=== PATIENT | male | born 1990 | race Caucasian/White ===

== ENCOUNTER 2019-10-17 14:45 | Emergency (ER) | payer MEDICAID ==
[~2019-10-17] VITALS: Ht 172.7 cm; Wt 85.0 kg
[2019-10-17 14:48] VITALS: BP 127/64
[2019-10-17] MEDS ORDERED: TETANUS, DIPHTHERIA, PERTUSSIS VAC/PF 0.5ML (>7YR OLD) IM ONE (15:15)
== END 2019-10-17 15:45 | disposition home or self-care (01) ==
LOC: ER 14:45
DX: S91.331A Puncture wound without foreign body, right foot, initial encounter (principal); Z91.013 Allergy to seafood; W45.0XXA Nail entering through skin, initial encounter; Y93.89 Activity, other specified; Y92.89 Other specified places as the place of occurrence of the external cause
CPT/HCPCS: 90471; 90715; 99283

== ENCOUNTER 2025-03-26 10:27 | Emergency (ER) | payer MEDICAID ==
[~2025-03-26] VITALS: Ht 177.8 cm; Wt 75.0 kg
[2025-03-26] MEDS: ALBUTEROL (0.083%) 2.5MG/3ML NEB HHN ONE (11:28)
[2025-03-26] MEDS: IPRATROPIUM BROMIDE (0.02%) 0.5MG/2.5ML NEB HHN ONE (11:28)
[2025-03-26 11:29] VITALS: PULSE 97; RESP 18; O2SAT 96
[2025-03-26] MEDS: DEXAMETHASONE 10 MG/ML VIAL IM ONE (11:38)
[2025-03-26] MEDS: KETOROLAC 30MG/ML VIAL IM ONE (11:38)
[2025-03-26] MEDS ORDERED: ALBU90AE INH (12:31)
[2025-03-26] MEDS ORDERED: AMOX-494 MT (12:31)
[2025-03-26] MEDS ORDERED: IBUP-1455 MT (12:31)
[2025-03-26] MEDS ORDERED: AZIT250T12 MT (12:31)
[2025-03-26 12:45] VITALS: BP 129/61; PULSE 88; RESP 18; TEMP 36.9; O2SAT 96
[2025-03-26 13:15] LABS: INFLUENZA TYPE A Presumptive Negative (Pres. Neg.); INFLUENZA TYPE B Presumptive Negative (Pres. Neg.)
[2025-03-26 13:16] LABS: RESPIRATORY SYNCYTIAL VIRUS Not Detected (Not Detectd)
== END 2025-03-26 13:01 | disposition home or self-care (01) ==
LOC: ER 10:27
DX: J11.00 Influenza due to unidentified influenza virus with unspecified type of pneumonia (principal); Z91.013 Allergy to seafood; Z20.822 Contact with and (suspected) exposure to COVID-19
CPT/HCPCS: 87420; 87804 ×2; 71045; 94640; 93005; 96372; 99285; 87426; J1100; J1885; Z7610 ×3; 94070; 94664; 98960

== ENCOUNTER 2025-04-29 07:26 | Emergency (ER) | payer MEDICAID, OTHER ==
[~2025-04-29] VITALS: Ht 177.8 cm; Wt 75.0 kg
[~2025-04-29 07:26] MED LIST: ALBU90AE INH; AMOX-494 MT; AZIT250T12 MT; IBUP-1455 MT
[2025-04-29 07:32] VITALS: O2SAT 100
[2025-04-29] MEDS: KETOROLAC 30MG/ML VIAL IM ONE (08:18)
[2025-04-29] MEDS: ACETAMINOPHEN 325MG TABLET PO ONE (08:18)
[2025-04-29 08:54] VITALS: BP 138/81; PULSE 70; RESP 16; TEMP 36.7; O2SAT 100
== END 2025-04-29 08:56 | disposition home or self-care (01) ==
LOC: ER 07:26
DX: S82.62XA Displaced fracture of lateral malleolus of left fibula, initial encounter for closed fracture (principal); Z91.013 Allergy to seafood; Z79.899 Other long term (current) drug therapy; X50.1XXA Overexertion from prolonged static or awkward postures, initial encounter; Y93.89 Activity, other specified; Y92.89 Other specified places as the place of occurrence of the external cause; Y99.8 Other external cause status
CPT/HCPCS: 73610; 73630; 29515; 96372; 99284; J1885; Z7610